=== PATIENT | male | born 1990 | race Caucasian/White ===

== ENCOUNTER 2023-06-16 14:30 | Emergency (ER) | payer BC, OTHER ==
[~2023-06-16] VITALS: Ht 170.2 cm; Wt 112.9 kg
[2023-06-16 14:37] VITALS: BP_SYST 162; PULSE 103; RESP 18; TEMP 98.2; O2SAT 99
[2023-06-16] MEDS ORDERED: ACET-2634 PO (15:28)
[2023-06-16] MEDS ORDERED: ONDA-8 TL (15:28)
[2023-06-16] MEDS ORDERED: IBUP-1969 PO (15:28)
[2023-06-16] MEDS ORDERED: ONDANSETRON 4 MG ODT TAB PO ONE (15:30)
[2023-06-16] MEDS ORDERED: IBUPROFEN 600 MG TABLET PO ONE (15:30)
[2023-06-16 16:40] VITALS: BP_SYST 162; PULSE 103; RESP 18; TEMP 98.2; O2SAT 99
== END 2023-06-16 16:40 | disposition home or self-care (01) ==
LOC: SED 14:30
DX: T63.311A Toxic effect of venom of black widow spider, accidental (unintentional), initial encounter (principal); M79.602 Pain in left arm; R11.0 Nausea; Z88.0 Allergy status to penicillin; Z88.1 Allergy status to other antibiotic agents; Z79.899 Other long term (current) drug therapy; Y92.89 Other specified places as the place of occurrence of the external cause
CPT/HCPCS: 99283; Q0162

== ENCOUNTER 2023-10-14 04:33 | Emergency (ER) | payer BC, MEDICAID ==
[~2023-10-14] VITALS: Ht 170.2 cm; Wt 113.4 kg
[~2023-10-14 04:33] MED LIST: ACET-2634 PO; IBUP-1969 PO; ONDA-8 TL
[2023-10-14 04:39] VITALS: BP_SYST 166; PULSE 115; RESP 20; TEMP 98; O2SAT 98
[2023-10-14] MEDS ORDERED: NACL 0.9% 1,000 ML IV ONE (04:45)
[2023-10-14 05:33] LABS: BASOPHILS # (AUTO) 0.1 K/uL (0.0-0.2); BASOPHILS % (AUTO) 0.9 % (0.0-2.0); EOSINOPHILS # (AUTO) 0.1 K/uL (0.0-0.4); EOSINOPHILS % (AUTO) 1.5 % (0.0-4.0); HEMATOCRIT 45.8 % (36-54); HEMOGLOBIN 15.6 g/dL (14.0-18.0); LYMPHOCYTES # (AUTO) 1.8 K/uL (1.0-5.5); LYMPHOCYTES % (AUTO) 21.5 % (20.5-51.5); MEAN CORPUSCULAR HEMOGLOBIN 32 pg (27-31); MEAN CORPUSCULAR HGB CONC 34 % (32-36); MEAN CORPUSCULAR VOLUME 94 fL (79.0-98.0); MONOCYTES # (AUTO) 0.6 K/uL (0.0-1.0); MONOCYTES % (AUTO) 6.8 % (1.7-9.3); NEUTROPHILS # (AUTO) 5.8 K/uL (1.8-7.7); NEUTROPHILS % (AUTO) 69.3 % (40.0-70.0); PLATELET COUNT (AUTO) 253 K/uL (130-430); RED BLOOD CELL COUNT(AUTO) 4.89 MIL/uL (4.2-6.2); RED CELL DISTRIBUTION WIDTH 12.9 % (9.0-15.0); WHITE BLOOD COUNT (AUTO) 8.3 K/uL (4.8-10.8)
[2023-10-14 05:35] LABS: ANION GAP 11 (5-15); CALCIUM 8.9 mg/dL (8.4-11.0); CARBON DIOXIDE 24 mmol/L (23-29); CHLORIDE 98 mmol/L (98-107); CREATININE 0.94 mg/dL (0.55-1.30); GFR AFRICAN AMERICAN 118 mL/min (>90); GLUCOSE 112 mg/dL (74-106); POTASSIUM 3.1 mmol/L (3.5-5.1); SODIUM SERUM 133 mmol/L (136-145); UREA NITROGEN, BLOOD 10 mg/dL (8-21)
[2023-10-14] MEDS ORDERED: METOPROLOL TARTRATE 25 MG TABLET PO ONE (05:45)
[2023-10-14 05:48] LABS: ALANINE AMINOTRANSFERASE 76 U/L (12-78); ALBUMIN 4.1 g/dL (3.4-4.8); ASPARTATE AMINOTRANSFERASE 31 U/L (10-37); TOTAL BILIRUBIN 0.7 mg/dL (0.0-1.0); TOTAL PROTEIN, SERUM 8.2 g/dL (6.4-8.3)
[2023-10-14 06:06] LABS: GFR NON AFRICAN-AMERICAN 98 mL/min (>90)
[2023-10-14 06:32] VITALS: BP_SYST 133; PULSE 99; RESP 17; TEMP 98.3; O2SAT 97
[2023-10-14] MEDS ORDERED: POTASSIUM CHLORIDE 10 MEQ TABLET.ER PO ONE (06:45)
== END 2023-10-14 07:03 | disposition home or self-care (01) ==
LOC: SED 04:33
DX: R00.0 Tachycardia, unspecified (principal); R00.2 Palpitations; R03.0 Elevated blood-pressure reading, without diagnosis of hypertension; E87.6 Hypokalemia; Z88.0 Allergy status to penicillin; Z88.1 Allergy status to other antibiotic agents; Z81.1 Family history of alcohol abuse and dependence; Z79.899 Other long term (current) drug therapy
CPT/HCPCS: 99285; 96360; 71045; 80053; 84443; 85025; 84484; 36415; 93005; J7030

== ENCOUNTER 2023-11-06 12:02 | Emergency (ER) | payer BC, MEDICAID ==
[~2023-11-06] VITALS: Ht 175.3 cm; Wt 113.4 kg
[2023-11-06 12:14] VITALS: BP_SYST 173; PULSE 123; RESP 19; TEMP 97.1; O2SAT 100
[2023-11-06] MEDS ORDERED: PANTOPRAZOLE SODIUM 40 MG TAB PO ONE ×2 (12:30→17:40)
[2023-11-06] MEDS ORDERED: ONDANSETRON 4 MG ODT TAB PO ONE (12:30)
[2023-11-06] MEDS ORDERED: DICYCLOMINE HCL 10 MG CAPSULE PO ONE (12:30)
[2023-11-06] MEDS ORDERED: KETOROLAC TROMETHAMINE 30 MG VIAL IM ONE (12:30)
[2023-11-06 12:54] LABS: BASOPHILS % (AUTO) 0.6 % (0.0-2.0); EOSINOPHILS # (AUTO) 0.1 K/uL (0.0-0.4); HEMATOCRIT 46.6 % (36-54); HEMOGLOBIN 16.1 g/dL (14.0-18.0); MEAN CORPUSCULAR HEMOGLOBIN 33 pg (27-31); MEAN CORPUSCULAR HGB CONC 35 % (32-36); MEAN CORPUSCULAR VOLUME 95 fL (79.0-98.0); MONOCYTES # (AUTO) 0.5 K/uL (0.0-1.0); MONOCYTES % (AUTO) 7.9 % (1.7-9.3); NEUTROPHILS # (AUTO) 3.3 K/uL (1.8-7.7); NEUTROPHILS % (AUTO) 56.5 % (40.0-70.0); PLATELET COUNT (AUTO) 247 K/uL (130-430); RED BLOOD CELL COUNT(AUTO) 4.91 MIL/uL (4.2-6.2); RED CELL DISTRIBUTION WIDTH 13.1 % (9.0-15.0); WHITE BLOOD COUNT (AUTO) 5.9 K/uL (4.8-10.8)
[2023-11-06 13:10] LABS: ANION GAP 10 (5-15); CALCIUM 9.3 mg/dL (8.4-11.0); CARBON DIOXIDE 26 mmol/L (23-29); CHLORIDE 102 mmol/L (98-107); CREATININE 0.95 mg/dL (0.55-1.30); GFR AFRICAN AMERICAN 117 mL/min (>90); GLUCOSE 125 mg/dL (74-106); POTASSIUM 4.2 mmol/L (3.5-5.1); SODIUM SERUM 138 mmol/L (136-145); UREA NITROGEN, BLOOD 7 mg/dL (8-21)
[2023-11-06 13:15] LABS: GFR NON AFRICAN-AMERICAN 96 mL/min (>90)
[2023-11-06 13:17] LABS: ALANINE AMINOTRANSFERASE 105 U/L (12-78); ALBUMIN 4.1 g/dL (3.4-4.8); ASPARTATE AMINOTRANSFERASE 47 U/L (10-37); BILIRUBIN,DIRECT 0.3 mg/dL (0.0-0.3); LIPASE 30 U/L (16-77); TOTAL BILIRUBIN 1.1 mg/dL (0.0-1.0); TOTAL PROTEIN, SERUM 8.1 g/dL (6.4-8.3)
[2023-11-06 13:32] LABS: ALCOHOL, BLOOD < 3 mg/dL (<10)
[2023-11-06] MEDS ORDERED: LIB25 PO (17:19)
[2023-11-06] MEDS ORDERED: NALT50TA PO (17:19)
[2023-11-06] MEDS ORDERED: ONDA-8 TL (17:19)
[2023-11-06] MEDS ORDERED: ONDANSETRON 4 MG ODT TAB ONE (17:40)
[2023-11-06] MEDS ORDERED: DICYCLOMINE HCL 10 MG/5 ML SOLUTION ONE (17:41)
[2023-11-06] MEDS ORDERED: KETOROLAC TROMETHAMINE 30 MG VIAL ONE (17:41)
[2023-11-06 17:47] VITALS: BP_SYST 143; PULSE 83; RESP 19; TEMP 97.1; O2SAT 99
== END 2023-11-06 18:05 | disposition home or self-care (01) ==
LOC: SED 12:02
DX: F10.239 Alcohol dependence with withdrawal, unspecified (principal); R10.13 Epigastric pain; R11.0 Nausea; R19.7 Diarrhea, unspecified; Z88.0 Allergy status to penicillin; Z88.1 Allergy status to other antibiotic agents; Z79.899 Other long term (current) drug therapy; Y90.6 Blood alcohol level of 120-199 mg/100 ml
CPT/HCPCS: 99285; 74176; 71045; 80076; 80048; 83690; 85025; 84484; 36415; 93005; 76376; G0482; Q0162; J1885